=== PATIENT | male | born 1995 | race Caucasian/White ===

== ENCOUNTER 2017-09-01 06:55 | Emergency (ER) | payer OTHER ==
[2017-09-01] MEDS: NORCO, ANEXSIA 5/325MG TABLET (HYDROcodone/ACETAMINOPHEN) PO (07:25)
== END 2017-09-01 07:32 | disposition home or self-care (01) ==
LOC: M ED 06:55
DX: S02.5XXA Fracture of tooth (traumatic), initial encounter for closed fracture (principal); W22.09XA Striking against other stationary object, initial encounter; Y92.89 Other specified places as the place of occurrence of the external cause
CPT/HCPCS: 99282

== ENCOUNTER 2018-09-21 21:06 | Emergency (ER) | payer OTHER ==
[~2018-09-21] VITALS: Ht 170.2 cm; Wt 86.4 kg
[~2018-09-21 21:06] MED LIST: HYDR-3715 PO
[2018-09-21] MEDS ORDERED: MOTR200T44 PO (21:11)
[2018-09-21 21:13] VITALS: BP 121/69
[2018-09-21] MEDS ORDERED: KETO10TAB PO (21:54)
[2018-09-21] MEDS ORDERED: LIDVISCBTL SSP (21:54)
[2018-09-21] MEDS ORDERED: LIDOCAINE VISCOUS 2% SOLN 15ML UDC TOP ONE (22:00)
[2018-09-21] MEDS ORDERED: KETOROLAC TROMETHAMINE 10 MG TAB PO ONE (22:00)
== END 2018-09-21 22:05 | disposition home or self-care (01) ==
LOC: M ED 21:06
DX: S02.5XXA Fracture of tooth (traumatic), initial encounter for closed fracture (principal); X58.XXXA Exposure to other specified factors, initial encounter; Y92.89 Other specified places as the place of occurrence of the external cause